=== PATIENT | male | born 2000 | race African-American/Black ===

== ENCOUNTER 2020-05-29 23:03 | Emergency (ER) | payer SELFPAY ==
--- NOTE | 2020-05-29 23:33 | ED Upper Extremity ---
General Chief Complaint: Laceration Stated Complaint: RT INDEX FIGNER LAC Source: patient (PT BELLIGERENT, CURSING, ARGUMENTATIVE, THREATENING FROM [facility] IN WAITING ROOM AND WILL NOT ANSWER QUESTIONS TO WHY HE IS HERE) History of Present Illness Date Seen by Provider: May 29, 2020 Time Seen by Provider: 23:13 Initial Comments PT ARRIVES VIA POV WITH FRIENDS PT IS CURSING, BELLIGERENT, THREATENING, ARGUMENTATIVE, CALLING ME NAMES, INCLUDING CALLING ME A "TWAT", FROM ARRIVAL--THIS BEHAVIOR STARTS ON ARRIVAL IN WAITING ROOM AND CONTINUES ALL THE WAY TO EXAM ROOM PT WILL NOT ANSWER QUESTIONS TO WHY HE IS HERE, BUT PT HAS A LACERATION TO RIGHT INDEX FINGER PT STATES HE DOES NOT EVEN WANT TO BE HERE AND "DOESN'T CARE ABOUT HIS FINGER" PT QUICKLY ESCALATES IN BEHAVIOR AND SECURITY WAS CALLED 2319-PT'S BEHAVIOR ESCALATED EVEN FURTHER WITH SECONDARY ART TEACHER AND PT WAS PROMPTLY ESCORTED OFF PROPERTY, AMA PAPERS SIGNED AND PT STATES HE DOES NOT WANT HIS FINGER LOOKED AT OR REPAIRED. PT ADVISED OF RISKS OF INFECTION, LOSS OF FINGER/LIMB. Allergies and Home Medications Patient Home Medication List Home Medication List Reviewed: Yes Review of Systems Constitutional: other (UNABLE TO OBTAIN) Physical Exam Vital Signs Capillary Refill : Height, Weight, BMI Height: '" Weight: lbs. oz. kg; BMI Method: General Appearance: other (PT LEFT AMA BEFORE EXAM COULD BE PERFORMED. ) Departure Impression Primary Impression: Left against medical advice Disposition: 07 AGAINST MEDICAL ADVICE Condition: Against Medical Advice Departure-Patient Inst. Referrals: NO,LOCAL PHYSICIAN (PCP) Primary Care Physician JHONNY SANDERS DO May 29, 2020 23:33
== END 2020-05-29 23:11 | disposition left against medical advice (07) ==
LOC: ER 23:11
DX: S61.210A Laceration without foreign body of right index finger without damage to nail, initial encounter (principal); X58.XXXA Exposure to other specified factors, initial encounter